=== PATIENT | male | born 1940 | race Caucasian/White ===

== ENCOUNTER 2022-03-10 14:24 | Inpatient (IN) | payer OTHER ==
[~2022-03-10] VITALS: Ht 170.2 cm; Wt 84.8 kg
[2022-03-10] MEDS ORDERED: ONDANSETRON HCL 4MG/2ML INJ IV ONE ×2 (15:45→21:30)
[2022-03-10] MEDS ORDERED: KETOROLAC 15MG/ML VIAL IV ONE (15:45)
[2022-03-10] MEDS ORDERED: SODIUM CHLORIDE 0.9% 1,000 ML IV ONE ×2 (15:45→23:00)
[2022-03-10 17:44] LABS: MEAN CORPUSCULAR HEMOGLOBIN 37.1 pg (28.0-32.0); MEAN CORPUSCULAR VOLUME 111.4 fL (80.0-94.0); MEAN PLATELET VOLUME 8.8 fl (7.4-10.4); PLATELET 623 x1000/uL (130-400); RED BLOOD CELL COUNT 1.51 mill/uL (4.7-6.1); RED CELL DISTRIBUTION WIDTH 17.9 % (11.6-14.6)
[2022-03-10 17:47] LABS: CHLORIDE 97 mEq/L (98-107)
[2022-03-10 17:51] LABS: HEMATOCRIT. 16.9 % (42.0-52.0); HEMOGLOBIN. 5.6 g/dL (14.0-18.0)
[2022-03-10 18:22] LABS: INR 3.2; PROTHROMBIN TIME 31.4 sec (9.6-11.0)
[2022-03-10 20:49] LABS: PLATELET ESTIMATE INCREASED
[2022-03-10 21:24] LABS: MEAN CORPUSCULAR HEMOGLOBIN 36.9 pg (28.0-32.0); MEAN CORPUSCULAR VOLUME 113.9 fL (80.0-94.0); PLATELET 506 x1000/uL (130-400); RED BLOOD CELL COUNT 1.24 mill/uL (4.7-6.1)
[2022-03-10 21:39] LABS: HEMATOCRIT 14.1 % (42.0-52.0); HEMOGLOBIN 4.6 g/dL (14.0-18.0)
[2022-03-10 21:55] LABS: CHLORIDE 101 mEq/L (98-107)
[2022-03-10] MEDS ORDERED: PHYTONADIONE 10 MG in DEXTROSE 5% WATER 50 ML IV ONE (22:00)
[2022-03-10] MEDS ORDERED: ACETAMINOPHEN 325MG TABLET PO ONE (23:00)
[2022-03-11] MEDS ORDERED: DIPHENHYDRAMINE 50MG/ML VIAL IV PRN (02:15)
[2022-03-11] MEDS ORDERED: ONDANSETRON HCL 4MG/2ML INJ IV PRN (02:15)
[2022-03-11] MEDS ORDERED: IPRATROPIUM/ALBUTEROL 0.5-3(2.5)MG/3ML NEB HHN PRN (02:15)
[2022-03-11] MEDS ORDERED: GUAIFENESIN 200MG/10ML SUGAR FREE UDC PO PRN (02:15)
[2022-03-11] MEDS ORDERED: CLONIDINE 0.1MG TABLET PO PRN (02:15)
[2022-03-11] MEDS ORDERED: NA PHOS,M-B/NA PHOS,DI-BA ENEMA 118ML PR PRN (02:15)
[2022-03-11] MEDS ORDERED: MAGNESIUM/ALUMINUM HYDROXIDE/SIMETHICONE 30ML UDC PO PRN (02:15)
[2022-03-11] MEDS ORDERED: INSULIN GLARGINE 100 UNITS/ML SUBCUT SCH ×2 (02:30→10:00)
[2022-03-11] MEDS ORDERED: DEXTROSE 50% WATER 50ML SYRINGE IV PRN (02:30)
[2022-03-11] MEDS ORDERED: SODIUM CHLORIDE 0.9% 1,000 ML IV ONE (02:45)
[2022-03-11 05:24] LABS: BASOPHILS % 0.1 % (0.0-2.0); HEMATOCRIT. 21.8 % (42.0-52.0); HEMOGLOBIN. 7.2 g/dL (14.0-18.0); LYMPHOCYTES % 7.8 % (20.0-50.0); MEAN CORPUSCULAR HEMOGLOBIN 32.3 pg (28.0-32.0); MEAN CORPUSCULAR VOLUME 97.7 fL (80.0-94.0); MEAN PLATELET VOLUME 8.8 fl (7.4-10.4); MONOCYTES % 8.7 % (2.0-8.0); NEUTROPHILS % 83.4 % (40.0-76.0); PLATELET 458 x1000/uL (130-400); RED BLOOD CELL COUNT 2.24 mill/uL (4.7-6.1); RED CELL DISTRIBUTION WIDTH 22.5 % (11.6-14.6)
[2022-03-11 05:41] LABS: BETA HYDROXYBUTYRATE 0.2 mMol/L (0.0-0.3); PHOSPHORUS 3.8 mg/dL (2.5-4.9); T4 FREE 0.95 ng/dL (0.76-1.46)
[2022-03-11] MEDS: INSULIN LISPRO 100 UNITS/ML SUBCUT SCH ×8 (06:51→21:53)
[2022-03-11] MEDS: PANTOPRAZOLE 40MG DR TABLET PO SCH (06:51)
[2022-03-11] MEDS: BLOOD SUGAR DIAGNOSTIC STRIP TEST SCH ×4 (07:06→21:50)
[2022-03-11] MEDS ORDERED: NALOXONE HCL 0.4MG/ML VIAL IV PRN (08:00)
[2022-03-11] MEDS ORDERED: INSULIN GLARGINE 100 UNITS/ML SUBCUT NR (08:00)
[2022-03-11] MEDS: SODIUM CHLORIDE 0.9% 1,000 ML IV SCH ×2 (08:33→21:50)
[2022-03-11 10:23] LABS: VITAMIN B12 SERUM 1536 pg/mL (211-911)
[2022-03-11] MEDS ORDERED: RUXO10TA PO (10:51)
[2022-03-11] MEDS: FOLIC ACID 1MG TABLET PO SCH (11:52)
[2022-03-11 11:57] LABS: FERRITIN 231 ng/mL (22-322)
[2022-03-11] MEDS: PIPERACILLIN/TAZOBACTAM 3.375 G in DEXTROSE 5% WATER 50 ML IV SCH (13:36)
[2022-03-11 19:30] VITALS: BP 128/60
[2022-03-11 20:00] VITALS: BP 128/67
[2022-03-11 22:00] VITALS: BP 135/64
[2022-03-11 22:03] LABS: TOTAL IRON BINDING CAPACITY 304 ug/dL (250-450)
[2022-03-12] VITALS (16 sets, daily range): BP systolic 115–140; BP diastolic 52–79
[2022-03-12 00:08] LABS: CLARITY URINE CLEAR (CLEAR); COLOR URINE YELLOW (YELLOW); KETONES URINE NEGATIVE (NEGATIVE); LEUKOCYTE ESTERASE URINE NEGATIVE (NEGATIVE); NITRITE URINE NEGATIVE (NEGATIVE); OCCULT BLOOD URINE 1+ (NEGATIVE); PROTEIN URINE TRACE (NEGATIVE); SPECIFIC GRAVITY URINE 1.019 (1.005-1.030); UROBILINOGEN URINE 0.2 E.U./dL (0.2-1.0)
[2022-03-12] MEDS: PIPERACILLIN/TAZOBACTAM 3.375 G in DEXTROSE 5% WATER 50 ML IV SCH ×3 (00:51→21:28)
[2022-03-12] MEDS: SODIUM CHLORIDE 0.9% 1,000 ML IV SCH ×2 (06:42→15:09)
[2022-03-12] MEDS: INSULIN LISPRO 100 UNITS/ML SUBCUT SCH ×7 (08:00→21:42)
[2022-03-12] MEDS: BLOOD SUGAR DIAGNOSTIC STRIP TEST SCH ×4 (08:21→21:28)
[2022-03-12] MEDS: PANTOPRAZOLE 40MG DR TABLET PO SCH (08:56)
[2022-03-12] MEDS: TRAMADOL 50MG TABLET PO PRN (08:57)
[2022-03-12] MEDS: FOLIC ACID 1MG TABLET PO SCH (08:57)
[2022-03-12 09:04] LABS: INR 1.1; PROTHROMBIN TIME 11.9 sec (9.6-11.0)
[2022-03-12] MEDS: INSULIN GLARGINE 100 UNITS/ML SUBCUT SCH (09:50)
[2022-03-12 09:54] LABS: BASOPHILS % 0.4 % (0.0-2.0); EOSINOPHILS % 0.4 % (0.0-5.0); LYMPHOCYTES % 12.2 % (20.0-50.0); MEAN CORPUSCULAR VOLUME 97.7 fL (80.0-94.0); MEAN PLATELET VOLUME 8.7 fl (7.4-10.4); MONOCYTES % 4.8 % (2.0-8.0); NEUTROPHILS % 82.2 % (40.0-76.0); PLATELET 482 x1000/uL (130-400); RED BLOOD CELL COUNT 2.09 mill/uL (4.7-6.1); RED CELL DISTRIBUTION WIDTH 22.2 % (11.6-14.6)
[2022-03-12 10:34] LABS: CHLORIDE 104 mEq/L (98-107)
[2022-03-12 10:35] LABS: HEMATOCRIT. 20.4 % (42.0-52.0); HEMOGLOBIN. 6.9 g/dL (14.0-18.0)
[2022-03-12 10:42] LABS: PHOSPHORUS 2.5 mg/dL (2.5-4.9)
[2022-03-12] MEDS ORDERED: VANCOMYCIN 1500MG in DEXTROSE 5% WATER 250ML IV NR (14:00)
[2022-03-12 15:08] LABS: TOTAL IRON BINDING CAPACITY 232 ug/dL (250-450)
[2022-03-12] MEDS ORDERED: DILTIAZEM HCL 120MG TABLET PO SCH (15:30)
[2022-03-12] MEDS ORDERED: WARF-67 PO (17:11)
[2022-03-12] MEDS ORDERED: RUXO10TA MT (17:11)
[2022-03-12] MEDS ORDERED: DILT-27 MT (17:11)
[2022-03-12] MEDS ORDERED: HYDR500C18 PO (17:11)
[2022-03-12] MEDS ORDERED: CEPH500T MT (17:11)
[2022-03-12] MEDS ORDERED: NPH,100I SQ (17:11)
[2022-03-12] MEDS ORDERED: METF-416 MT (17:11)
[2022-03-12] MEDS ORDERED: ROSU20TA2 MT (17:11)
[2022-03-12] MEDS ORDERED: OMEP20TA23 MT (17:11)
[2022-03-12] MEDS ORDERED: MECO10005 (17:11)
[2022-03-12] MEDS: ATORVASTATIN CALCIUM 40MG TABLET PO SCH (21:28)
[2022-03-12 22:30] LABS: HEMATOCRIT 23.7 % (42.0-52.0); HEMOGLOBIN 8.1 g/dL (14.0-18.0)
[2022-03-13] VITALS (12 sets, daily range): BP systolic 110–147; BP diastolic 55–74
[2022-03-13] MEDS: SODIUM CHLORIDE 0.9% 1,000 ML IV SCH ×2 (00:24→10:01)
[2022-03-13] MEDS: TRAMADOL 50MG TABLET PO PRN (03:43)
[2022-03-13] MEDS: BLOOD SUGAR DIAGNOSTIC STRIP TEST SCH ×4 (07:22→21:00)
[2022-03-13] MEDS: INSULIN LISPRO 100 UNITS/ML SUBCUT SCH ×7 (07:23→20:51)
[2022-03-13] MEDS: FOLIC ACID 1MG TABLET PO SCH (10:02)
[2022-03-13] MEDS: PIPERACILLIN/TAZOBACTAM 3.375 G in DEXTROSE 5% WATER 50 ML IV SCH ×2 (10:02→20:51)
[2022-03-13] MEDS: PANTOPRAZOLE 40MG DR TABLET PO SCH (10:02)
[2022-03-13] MEDS: DILTIAZEM HCL 60MG TABLET PO SCH (10:03)
[2022-03-13] MEDS: INSULIN GLARGINE 100 UNITS/ML SUBCUT SCH (10:20)
[2022-03-13] MEDS ORDERED: LACTULOSE 20G/30ML UDC PO PRN (10:45)
[2022-03-13] MEDS ORDERED: VANCOMYCIN 1G PREMIX 200 ML IV SCH (11:00)
[2022-03-13] MEDS ORDERED: LORAZEPAM 0.5MG TABLET PO NR (11:00)
[2022-03-13 12:29] LABS: BASOPHILS % 0.5 % (0.0-2.0); HEMATOCRIT. 24.9 % (42.0-52.0); HEMOGLOBIN. 8.7 g/dL (14.0-18.0); MEAN CORPUSCULAR HEMOGLOBIN 33.1 pg (28.0-32.0); MEAN CORPUSCULAR VOLUME 94.5 fL (80.0-94.0); MEAN PLATELET VOLUME 8.3 fl (7.4-10.4); MONOCYTES % 3.8 % (2.0-8.0); NEUTROPHILS % 82.7 % (40.0-76.0); PLATELET 557 x1000/uL (130-400); RED BLOOD CELL COUNT 2.64 mill/uL (4.7-6.1); RED CELL DISTRIBUTION WIDTH 20.2 % (11.6-14.6)
[2022-03-13 14:24] LABS: CHLORIDE 100 mEq/L (98-107)
[2022-03-13 14:31] LABS: PHOSPHORUS 2.6 mg/dL (2.5-4.9)
[2022-03-13 15:41] LABS: INR 1.1; PROTHROMBIN TIME 11.3 sec (9.6-11.0)
[2022-03-13] MEDS: ACETAMINOPHEN 325MG TABLET PO PRN ×2 (17:33→20:51)
[2022-03-13] MEDS: ATORVASTATIN CALCIUM 40MG TABLET PO SCH (20:51)
[2022-03-14] VITALS (16 sets, daily range): BP systolic 104–177; BP diastolic 40–99
[2022-03-14 07:17] LABS: BASOPHILS % 0.7 % (0.0-2.0); EOSINOPHILS % 2.4 % (0.0-5.0); HEMATOCRIT. 23.2 % (42.0-52.0); HEMOGLOBIN. 8.3 g/dL (14.0-18.0); LYMPHOCYTES % 16.5 % (20.0-50.0); MEAN CORPUSCULAR HEMOGLOBIN 33.8 pg (28.0-32.0); MEAN CORPUSCULAR VOLUME 94.4 fL (80.0-94.0); MEAN PLATELET VOLUME 8.3 fl (7.4-10.4); MONOCYTES % 5.8 % (2.0-8.0); NEUTROPHILS % 74.6 % (40.0-76.0); PLATELET 534 x1000/uL (130-400); RED BLOOD CELL COUNT 2.45 mill/uL (4.7-6.1); RED CELL DISTRIBUTION WIDTH 19.6 % (11.6-14.6)
[2022-03-14] MEDS: BLOOD SUGAR DIAGNOSTIC STRIP TEST SCH ×4 (07:30→20:23)
[2022-03-14 07:42] LABS: CHLORIDE 102 mEq/L (98-107)
[2022-03-14 07:50] LABS: PHOSPHORUS 2.6 mg/dL (2.5-4.9)
[2022-03-14] MEDS: INSULIN LISPRO 100 UNITS/ML SUBCUT SCH ×7 (08:00→20:39)
[2022-03-14 08:10] LABS: INR 1.1; PROTHROMBIN TIME 11.6 sec (9.6-11.0)
[2022-03-14] MEDS: DILTIAZEM HCL 60MG TABLET PO SCH (09:46)
[2022-03-14] MEDS: FOLIC ACID 1MG TABLET PO SCH (09:46)
[2022-03-14] MEDS: PANTOPRAZOLE 40MG DR TABLET PO SCH (09:47)
[2022-03-14] MEDS: ACETAMINOPHEN 325MG TABLET PO PRN ×2 (09:49→17:20)
[2022-03-14] MEDS: PIPERACILLIN/TAZOBACTAM 3.375 G in DEXTROSE 5% WATER 50 ML IV SCH ×2 (09:49→20:36)
[2022-03-14] MEDS: INSULIN GLARGINE 100 UNITS/ML SUBCUT SCH (09:51)
[2022-03-14] MEDS ORDERED: VANCOMYCIN 1.25GM PMX (XELLIA) 250 ML IV SCH (12:00)
[2022-03-14] MEDS: ATORVASTATIN CALCIUM 40MG TABLET PO SCH (20:37)
[2022-03-15] VITALS: BP 150/50
[2022-03-15 02:00] VITALS: BP 148/52
[2022-03-15 04:00] VITALS: BP 145/48
[2022-03-15 06:00] VITALS: BP 145/57
[2022-03-15 06:08] LABS: BASOPHILS % 1.1 % (0.0-2.0); EOSINOPHILS % 2.4 % (0.0-5.0); HEMATOCRIT. 23.2 % (42.0-52.0); HEMOGLOBIN. 8.1 g/dL (14.0-18.0); INR 1.1; LYMPHOCYTES % 14.8 % (20.0-50.0); MEAN CORPUSCULAR HEMOGLOBIN 33.2 pg (28.0-32.0); MEAN CORPUSCULAR VOLUME 94.4 fL (80.0-94.0); MEAN PLATELET VOLUME 8.1 fl (7.4-10.4); MONOCYTES % 6.4 % (2.0-8.0); NEUTROPHILS % 75.3 % (40.0-76.0); PLATELET 572 x1000/uL (130-400); PROTHROMBIN TIME 11.9 sec (9.6-11.0); RED BLOOD CELL COUNT 2.45 mill/uL (4.7-6.1); RED CELL DISTRIBUTION WIDTH 19.5 % (11.6-14.6)
[2022-03-15] MEDS: ACETAMINOPHEN 325MG TABLET PO PRN (06:55)
[2022-03-15] MEDS: PANTOPRAZOLE 40MG DR TABLET PO SCH (06:55)
[2022-03-15 07:33] LABS: CHLORIDE 103 mEq/L (98-107)
[2022-03-15 07:40] LABS: PHOSPHORUS 2.7 mg/dL (2.5-4.9)
== END 2022-03-15 13:22 | disposition short-term general hospital (02) | DRG 871 ==
LOC: ER 14:24 → EDBEDREQTM 18:38 → EDBEDREQ 22:58 → EDBEDREQSVC 22:58 → MICUSO 03-11 03:59 → 5EST 03-11 19:15
PROVIDERS: ADMIT Internal Medicine; ATTEND Internal Medicine
PROC: 30233K1 Transfusion of Nonautologous Frozen Plasma into Peripheral Vein, Percutaneous Approach (ICD-10-PCS; principal; 2022-03-11)
PROC: 30233N1 Transfusion of Nonautologous Red Blood Cells into Peripheral Vein, Percutaneous Approach (ICD-10-PCS; 2022-03-11)
DX: A41.89 Other specified sepsis (principal); E11.00 Type 2 diabetes mellitus with hyperosmolarity without nonketotic hyperglycemic-hyperosmolar coma (NKHHC); N17.0 Acute kidney failure with tubular necrosis; R57.8 Other shock; D62 Acute posthemorrhagic anemia; I48.21 Permanent atrial fibrillation; E44.1 Mild protein-calorie malnutrition; E87.20 Acidosis, unspecified; E87.5 Hyperkalemia; Z20.822 Contact with and (suspected) exposure to COVID-19; I10 Essential (primary) hypertension; E78.00 Pure hypercholesterolemia, unspecified; E86.0 Dehydration; D75.839 Thrombocytosis, unspecified; D53.9 Nutritional anemia, unspecified; M79.604 Pain in right leg; M25.511 Pain in right shoulder; E11.65 Type 2 diabetes mellitus with hyperglycemia; E87.6 Hypokalemia; D47.3 Essential (hemorrhagic) thrombocythemia; E03.8 Other specified hypothyroidism; T50.905A Adverse effect of unspecified drugs, medicaments and biological substances, initial encounter; Z79.899 Other long term (current) drug therapy; Z68.29 Body mass index [BMI] 29.0-29.9, adult; Z88.6 Allergy status to analgesic agent; Z88.5 Allergy status to narcotic agent; Z88.8 Allergy status to other drugs, medicaments and biological substances; Z79.01 Long term (current) use of anticoagulants; Z79.4 Long term (current) use of insulin; Z79.84 Long term (current) use of oral hypoglycemic drugs; W01.0XXA Fall on same level from slipping, tripping and stumbling without subsequent striking against object, initial encounter; Y93.89 Activity, other specified; Y92.89 Other specified places as the place of occurrence of the external cause; Y99.8 Other external cause status
CPT/HCPCS: 36415; 71045; 73030; 73502; 80053; 82962; 83880; 84484; 85025; 85027; 85610; 86850; 86900; 86901; 86920; 86927; 93005; 99291; J1885; J2405; J3430; J7030; J7060; 80048; 80061; 81003; 82010; 82270; 82550; 82607; 82728; 82746; 82747; 83036; 83540; 83550; 83605; 83735; 84100; 84145; 84439; 84443; 85014; 85018; 85044; 87106; 87426; 93306; 97162; J1815; J2543; J3370; P9016; P9017

== ENCOUNTER 2024-08-11 11:43 | Emergency (ER) | payer MEDICARE, OTHER ==
[~2024-08-11] VITALS: Ht 165.1 cm; Wt 61.0 kg
[~2024-08-11 11:43] MED LIST: CEPH500T MT; DILT-27 MT; HYDR500C18 PO; MECO10005; METF-416 MT; NPH,100I SQ; OMEP20TA23 MT; ROSU20TA2 MT; RUXO10TA MT; RUXO10TA PO; WARF-67 PO
[2024-08-11 11:46] VITALS: O2SAT 96
[2024-08-11 12:25] LABS: HEMATOCRIT. 26.6 % (42.0-52.0); HEMOGLOBIN. 8.8 g/dL (14.0-18.0); MEAN CORPUSCULAR HEMOGLOBIN 29.2 pg (28.0-32.0); MEAN CORPUSCULAR VOLUME 88.4 fL (80.0-94.0); MEAN PLATELET VOLUME 8.9 fl (7.4-10.4); PLATELET 381 x1000/uL (130-400); RED BLOOD CELL COUNT 3.01 mill/uL (4.7-6.1); RED CELL DISTRIBUTION WIDTH 15.9 % (11.6-14.6); WHITE BLOOD COUNT 36.1 x1000/uL (4.5-11.0)
[2024-08-11 12:39] LABS: DIFFERENTIAL COMMENT 1
[2024-08-11 12:41] LABS: CHLORIDE 92 mEq/L (98-107); POTASSIUM 4.8 mEq/L (3.5-5.1); SODIUM 126 mEq/L (136-145)
[2024-08-11 12:42] LABS: CALCIUM 9.1 mg/dL (8.7-10.4); CARBON DIOXIDE 29 mEq/L (21-32)
[2024-08-11] MEDS: LACTATED RINGERS 1,000 ML IV SCH (12:42)
[2024-08-11 12:46] LABS: CLARITY URINE CLOUDY (CLEAR); COLOR URINE YELLOW (YELLOW); GLUCOSE URINE NEGATIVE (NEGATIVE); KETONES URINE NEGATIVE (NEGATIVE); LEUKOCYTE ESTERASE URINE NEGATIVE (NEGATIVE); NITRITE URINE NEGATIVE (NEGATIVE); OCCULT BLOOD URINE TRACE (NEGATIVE); PH URINE 5.5 (4.5-8.0); PROTEIN URINE 2+ (NEGATIVE); SPECIFIC GRAVITY URINE 1.018 (1.005-1.030); UROBILINOGEN URINE 0.2 E.U./dL (0.2-1.0)
[2024-08-11 12:47] LABS: CREATININE 1.2 mg/dL (0.6-1.3); GLUCOSE 244 mg/dL (70-105); TROPONIN I HIGH SENSITIVITY 6 ng/L (3.0-53); UREA NITROGEN BLOOD 24 mg/dL (9-23)
[2024-08-11 12:49] LABS: ALANINE AMINOTRANSFERASE 21 IU/L (10-49); ALBUMIN 3.2 g/dL (3.2-4.8); ASPARTATE AMINOTRANSFERASE 12 IU/L (<34); BILIRUBIN DIRECT 0.2 mg/dL (<=3.0); BILIRUBIN TOTAL 0.5 mg/dL (0.1-1.0); PROTEIN TOTAL 7.3 g/dL (6.0-8.3)
[2024-08-11] MEDS ORDERED: VANCOMYCIN 1.5GM/250ML 250 ML IV STA (12:50)
[2024-08-11] MEDS ORDERED: CEFEPIME 2GM/100ML 100 ML IV NR (13:00)
[2024-08-11] MEDS ORDERED: CEFEPIME 2GM IN DEXT 5% 100ML IV ONE (13:00)
[2024-08-11 13:14] LABS: INR 1.6; PROTHROMBIN TIME 16.1 sec (9.6-11.0)
[2024-08-11 13:17] LABS: PLATELET ESTIMATE NORMAL
[2024-08-11 13:18] LABS: ANISOCYTOSIS 1+; HYPOCHROMASIA 1+
[2024-08-11 13:28] LABS: BACTERIA URINE 1+; RBC URINE 0-2 /hpf (0-2); SQUAMOUS EPITHELIAL CELL URINE NONE SEEN /lpf (RARE/1+); YEAST URINE NONE SEEN
[2024-08-11] MEDS: CEFEPIME 2GM/50ML DUPLEX 50 ML IV NR (13:53)
[2024-08-11] MEDS: AZITHROMYCIN 500MG/250ML 250 ML IV STA (14:35)
[2024-08-11 14:45] LABS: TROPONIN I HIGH SENSITIVITY 7 ng/L (3.0-53)
[2024-08-11] MEDS: VANCOMYCIN 1.5GM PMX (XELLIA) 300 ML IV SCH (15:57)
[2024-08-11 19:02] VITALS: BP 113/51; PULSE 96; RESP 12; TEMP 36.9; O2SAT 97
== END 2024-08-11 19:28 | disposition short-term general hospital (02) ==
LOC: ER 11:43 → EDBEDREQ 12:20 → ER 19:28
DX: R06.02 Shortness of breath (principal); R91.8 Other nonspecific abnormal finding of lung field; E78.00 Pure hypercholesterolemia, unspecified; E11.9 Type 2 diabetes mellitus without complications; I10 Essential (primary) hypertension; R51.9 Headache, unspecified; Z88.5 Allergy status to narcotic agent; Z79.899 Other long term (current) drug therapy; Z91.048 Other nonmedicinal substance allergy status
CPT/HCPCS: 99285; 96365; 70450; 71045; 96367; 96361; 80076; 80048; 81003; 83605; 85025; 85610; 87040; 84484; 36415; 93005; J3370; J0456; J0692